=== PATIENT | female | born 1970 ===

== ENCOUNTER 2017-12-02 14:20 | Day surgery (SDC) | payer OTHER ==
[2017-12-02] MEDS ORDERED: LACTATED RINGERS 1,000 ML ONE (15:01)
[2017-12-02] MEDS ORDERED: NACL 0.9% 500 ML 500 ML IV ONE (15:13)
--- NOTE | 2017-12-02 15:27 | Short Stay Summary ---
Short Stay Documentation Date of service: 12/02/17 Narrative H&P: C/O: Molar 47-year-old presents to office today, she is referred for suspected molar . She is status post serum beta-hCG on 11/19/2017 which was ~ 74,000. Ultrasound obtained on 11/19/2017 shows irregular collection within the endometrial cavity measuring 4.6 x 4, no pole, no gestational sac. She also has a 3 cm anterior fibroid suspected molar . She is currently spotting Gynhx:Regular cycles LMP 09/25/17 Medhx/Sughx:None Obhx: # 7 Meds:None ALL:NKDA Exam was unremarkable A: Suspected molar P: -We discussed above in detail. -We discussed risks of surgery including perforation, massive bleeding, infection, we will have 2 units packed red blood cells on hold. -Discussed follow-up in detail including weekly beta hCG until Zero, then monthly B HCG for 6 months -QUESTIONS were answered, proceeded to the OR once available - History Past Medical History: No medical history Past Surgical History: No surgical history Social history: single, full code, no smoking, no IV drug use - Allergies and Medications Current Medications: Allergies No Known Allergies Allergy (Unverified 12/02/17 13:58) - Physical exam General appearance: no acute distress, obese HEENT: Atraumatic Lungs: Clear to auscultation Heart: Regular rate, Normal S1, Normal S2 Gastrointestinal: normal, normoactive bowel sounds, no tenderness, no distended , no guarding, obese Female Genitourinary: normal Extremities: no ischemia Neurological: Normal gait, Normal speech - Brief post op/procedure progress note Date of procedure: 12/02/17 Pre-op diagnosis: Molar Post-op diagnosis: same Procedure: Suction D&C Anesthesia: GETA Findings: Parous os, uterus 10 cm Surgeon: NAIF GRIER Estimated blood loss: other (200 mL) Pathology: list (products of conception) Specimen disposition: to lab Condition: stable - Hospital course Hospital course: Uncomplicated postoperative course - Disposition Condition at discharge: Good Disposition: DC-01 TO HOME OR SELFCARE Short Stay Discharge Plan Activity: advance as tolerated Weight Bearing Status: Weight Bear as Tolerated Diet: regular Additional Instructions: She is advised to have weekly beta hCGs until 0 and then monthly beta-hCGs 6 months Follow up with: PRIMARY MD HECTOR [Primary Care Provider] - 7 Days NAIF GRIER MD [Staff Physician] - 7 Days
[2017-12-02 15:37] LABS: Hematocrit 31.9 % (30.3-42.9); Hemoglobin 10.2 gm/dl (10.1-14.3)
--- NOTE | 2017-12-02 15:37 | Anesthesia Day of Surgery ---
Anesthesia Day of Surgery - Day of Surgery Patient Examined: Yes Patient H&P Reviewed: Yes Patient is NPO: Yes
--- NOTE | 2017-12-02 15:37 | Anesthesia Consultation ---
Anesthesia Consult and Med Hx Date of service: 12/02/17 - Airway Anesthetic Teeth Evaluation: Good ROM Head & Neck: Adequate Mental/Hyoid Distance: Adequate Mallampati Class: Class II Intubation Access Assessment: Probably Good - Pulmonary Exam CTA: Yes - Cardiac Exam Cardiac Exam: RRR - Pre-Operative Health Status ASA Pre-Surgery Classification: ASA2 Proposed Anesthetic Plan: General
[2017-12-02] MEDS ORDERED: ZOFRAN IV PRN (15:38)
[2017-12-02] MEDS ORDERED: DILAUDID IV PRN (15:38)
[2017-12-02] MEDS ORDERED: DOXYCYCLINE HYCLATE 100 MG in NACL 0.9% 250ML 250 ML IV ONE (15:45)
[2017-12-02] MEDS ORDERED: LACTATED RINGERS 1,000 ML IV SCH ×2 (16:00)
[2017-12-02] MEDS ORDERED: SUBLIMAZE ONE (16:15)
[2017-12-02] MEDS ORDERED: TORADOL ONE ×3 (16:15→18:39)
[2017-12-02] MEDS ORDERED: DIPRIVAN 10 MG/ML IV ONE (16:15)
[2017-12-02] MEDS ORDERED: XYLOCAINE MPF 2% ONE (16:15)
[2017-12-02] MEDS ORDERED: ROBINUL ONE ×2 (16:16→17:59)
[2017-12-02] MEDS ORDERED: CYTOTEC VG ONE ×3 (17:27→18:00)
[2017-12-02] MEDS ORDERED: ZOFRAN ONE (17:27)
[2017-12-02] MEDS ORDERED: SILVER NITRATE TP ONE ×2 (17:40→17:47)
[2017-12-02] MEDS ORDERED: NACL 0.9% IR ONE (17:47)
[2017-12-02] MEDS ORDERED: METHERGINE IM ONE ×2 (17:52→17:55)
--- NOTE | 2017-12-02 18:11 | Operative Report ---
Operative Report Operative Report: DATE: 12/02/2017 PREOPERATIVE DIAGNOSIS: Molar POSTOP DIAGNOSIS: Same NAME OF PROCEDURE: Suction D&C SURGEON: NAIF GRIER MD TRANSPORTATION ENGINEERING TECHNICIAN: None ANESTHESIA: General endotracheal EBL: 200 mL PATHOLOGY SPECIMEN: products conception URINE OUTPUT: 50 mL FINDINGS: Multiiparous-appearing os, uterus sounded to 10 cm DESCRIPTION OF PROCEDURE: After informed consent, patient was taken to the operating room where she was prepped and draped in a sterile fashion. Mejia speculum was placed in the patient's vagina single-tooth was used to grab the anterior lip and uterus was sounded to 10 cm cm. Cervical os was serially dilated to a max of 21, size 10 suction curet was then advanced into the patient 's cervical os without difficulty the fundus was palpated gently and the curet was pulled back. In a rotary manner, the uterus was cleared of all products of conception, sharp curet of all 4 quadrants showed no retained products. She tolerated the procedure well, lap and instrument counts were correct 2, she received 800 g of misoprostol MD and 100 mg of doxycycline IV. She is transferred to PACU in stable condition
[2017-12-02] MEDS ORDERED: TYLENOL PO PRN (18:17)
[2017-12-02] MEDS ORDERED: NORCO 5/325 PO PRN (18:17)
[2017-12-02] MEDS ORDERED: MOTRIN PO PRN (18:17)
[2017-12-02] MEDS ORDERED: TORADOL IV ONE (18:37)
[2017-12-02 18:40] LABS: Hematocrit 31.7 % (30.3-42.9); Hemoglobin 9.9 gm/dl (10.1-14.3)
--- NOTE | 2017-12-02 18:42 | Post Anesthesia Evaluation ---
- Post Anesthesia Evaluation Patient Participated: Yes Airway Patent: Yes Stable Respiratory Function: Yes Nausea/Vomiting: No Temp > 96.8F: Yes Pain Manageable: Yes Adequeate Hydration: Yes Anesthesia Complications: No Block Receding Appropriately: Not Applicable Patient on Ventilator: No
[2017-12-02 20:28] VITALS: BP 129/81
== END 2017-12-02 14:21 | disposition home or self-care (01) ==
LOC: OR 14:20
PROVIDERS: ATTEND Obstetrics & Gynecology Gynecology
DX: O02.0 Blighted ovum and nonhydatidiform mole (principal); Z79.899 Other long term (current) drug therapy
CPT/HCPCS: 36415; 59812; 84702; 85014; 85018; 86850; 86870; 86900; 86901; 86922; 88305; J1170; J1885; J2210; J2405; J2590; J2704; J3010; J7050; J7120